=== PATIENT | female | born 1990 | race Caucasian/White ===

== ENCOUNTER 2021-08-09 20:09 | Emergency (ER) | payer OTHER ==
[2021-08-09] MEDS ORDERED: LODINE CAP 300300 MG PO (21:48)
== END 2021-08-09 22:00 | disposition home or self-care (01) ==
LOC: ER1 20:09
PROVIDERS: Physician Assistant
DX: S60.222A Contusion of left hand, initial encounter (principal); Z88.2 Allergy status to sulfonamides; W22.8XXA Striking against or struck by other objects, initial encounter; Y92.89 Other specified places as the place of occurrence of the external cause; Y99.0 Civilian activity done for income or pay
CPT/HCPCS: 73130; 80307; 99283